=== PATIENT | male | born 1980 | race Hispanic/Latino ===

== ENCOUNTER 2017-07-21 18:56 | Emergency (ER) | payer OTHER | END 2017-07-21 21:00 | disposition home or self-care (01) | LOC: M ED 18:56 | DX: S20.222A Contusion of left back wall of thorax, initial encounter (principal); S53.401A Unspecified sprain of right elbow, initial encounter; W01.198A Fall on same level from slipping, tripping and stumbling with subsequent striking against other object, initial encounter; Y92.89 Other specified places as the place of occurrence of the external cause | CPT/HCPCS: 71101 ==